=== PATIENT | male | born 1950 | race Two or more races ===

== ENCOUNTER 2019-10-28 08:00 | Outpatient (CLI) | payer OTHER | END 2019-10-28 08:06 | disposition home or self-care (01) | LOC: RAD 08:00 | DX: M54.5 Low back pain (principal); Z01.810 Encounter for preprocedural cardiovascular examination; E03.8 Other specified hypothyroidism; E11.51 Type 2 diabetes mellitus with diabetic peripheral angiopathy without gangrene; E55.9 Vitamin D deficiency, unspecified; E11.42 Type 2 diabetes mellitus with diabetic polyneuropathy; G62.89 Other specified polyneuropathies; I11.9 Hypertensive heart disease without heart failure ==

== ENCOUNTER 2023-12-12 07:30 | Outpatient (CLI) | payer OTHER | END 2023-12-12 07:40 | disposition home or self-care (01) | LOC: SONOGRAMA 07:30 | PROVIDERS: ATTEND Internal Medicine | DX: I71.9 Aortic aneurysm of unspecified site, without rupture (principal); Z13.6 Encounter for screening for cardiovascular disorders ==